=== PATIENT | female | born 1980 | race Caucasian/White ===

== ENCOUNTER 2019-04-01 16:58 | Emergency (ER) | payer SELFPAY ==
[~2019-04-01] VITALS: Ht 162.6 cm; Wt 58.1 kg
[2019-04-01 17:16] VITALS: BP 113/79; Ht 162.6 cm; Wt 58.1 kg
== END 2019-04-01 18:58 | disposition left against medical advice (07) ==
LOC: ED 16:58
DX: Z53.21 Procedure and treatment not carried out due to patient leaving prior to being seen by health care provider (principal)

== ENCOUNTER 2019-04-23 19:16 | Emergency (ER) | payer MEDICAID ==
[~2019-04-23] VITALS: Ht 162.6 cm; Wt 63.5 kg
[2019-04-23 19:23] VITALS: Ht 162.6 cm; Wt 63.5 kg
[2019-04-23 20:25] LABS: BASOPHIL % 0.2 % (0-2); PLATELET COUNT 322 x10^3mcL (130-400); RED CELL DISTRIBUTION WIDTH 18.3 % (11.5-14.5)
[2019-04-23 20:33] LABS: CARBON DIOXIDE 26.4 mmol/L (21-32); CHLORIDE SERUM 108 mmol/L (98-107); CREATININE SERUM 0.5 mg/dL (0.6-1.0); GFR1 > 60 mL/min; GLUCOSE SERUM 96 mg/dL (74-106); POTASSIUM SERUM 4.6 mmol/L (3.5-5.1); SODIUM SERUM 141 mmol/L (136-145)
[2019-04-23 20:38] LABS: ALBUMIN 1.7 g/dL (3.4-5.0); ALKALINE PHOSPHATASE 239 U/L (46-116); ALT/SGPT 20 U/L (14-59); AST/SGOT 32 U/L (15-37); BILIRUBIN TOTAL 0.1 mg/dL (0.20-1.00)
[2019-04-23 22:32] VITALS: BP 130/78
== END 2019-04-23 22:30 | disposition home or self-care (01) ==
LOC: ED 19:16
PROVIDERS: Emergency Medicine
DX: O90.89 Other complications of the puerperium, not elsewhere classified (principal); D64.9 Anemia, unspecified; R10.30 Lower abdominal pain, unspecified; I10 Essential (primary) hypertension; Z90.89 Acquired absence of other organs; Z88.0 Allergy status to penicillin
CPT/HCPCS: 36415; J7030

== ENCOUNTER 2019-04-25 03:30 | Emergency (ER) | payer MEDICAID ==
[~2019-04-25] VITALS: Ht 154.9 cm; Wt 54.1 kg
[2019-04-25 03:49] VITALS: Ht 154.9 cm; Wt 54.1 kg
[2019-04-25 05:16] LABS: BASOPHIL % 0.1 % (0-2); PLATELET COUNT 345 x10^3mcL (130-400)
[2019-04-25 05:19] LABS: CALCIUM 8.2 mg/dL (8.5-10.1); CHLORIDE SERUM 103 mmol/L (98-107); CREATININE SERUM 0.5 mg/dL (0.6-1.0); GFR1 > 60 mL/min; GLUCOSE SERUM 103 mg/dL (74-106); POTASSIUM SERUM 4.2 mmol/L (3.5-5.1); SODIUM SERUM 138 mmol/L (136-145)
[2019-04-25 05:24] LABS: ALKALINE PHOSPHATASE 257 U/L (46-116); ALT/SGPT 63 U/L (14-59); AST/SGOT 77 U/L (15-37); BILIRUBIN TOTAL 0.2 mg/dL (0.20-1.00)
[2019-04-25 05:25] LABS: RED CELL DISTRIBUTION WIDTH 18.6 % (11.5-14.5)
[2019-04-25 05:26] LABS: ALBUMIN 1.9 g/dL (3.4-5.0); TOTAL PROTEIN, SERUM 6.1 g/dL (6.4-8.2)
[2019-04-25 07:11] VITALS: BP 132/89
== END 2019-04-25 07:11 | disposition home or self-care (01) ==
LOC: ED 03:30
PROVIDERS: Emergency Medicine
DX: R51 Headache (principal); I10 Essential (primary) hypertension; Z88.0 Allergy status to penicillin
CPT/HCPCS: 36415

== ENCOUNTER 2019-05-02 17:25 | Emergency (ER) | payer MEDICAID ==
[~2019-05-02] VITALS: Ht 162.6 cm; Wt 48.5 kg
[2019-05-02 17:40] VITALS: BP 98/71; Ht 162.6 cm; Wt 48.5 kg
[2019-05-02 18:22] LABS: BASOPHIL % 0.8 % (0-2)
[2019-05-02 18:23] LABS: PLATELET COUNT 527 x10^3mcL (130-400)
[2019-05-02 18:36] LABS: CALCIUM 8.6 mg/dL (8.5-10.1); CARBON DIOXIDE 30.2 mmol/L (21-32); CHLORIDE SERUM 106 mmol/L (98-107); CREATININE SERUM 0.6 mg/dL (0.6-1.0); GFR1 > 60 mL/min; GLUCOSE SERUM 88 mg/dL (74-106); POTASSIUM SERUM 4.1 mmol/L (3.5-5.1); SODIUM SERUM 145 mmol/L (136-145)
[2019-05-02 18:45] LABS: ALKALINE PHOSPHATASE 190 U/L (46-116); ALT/SGPT 32 U/L (14-59); AST/SGOT 23 U/L (15-37); BILIRUBIN TOTAL 0.2 mg/dL (0.20-1.00); TOTAL PROTEIN, SERUM 7.4 g/dL (6.4-8.2)
[2019-05-02 18:47] LABS: ALBUMIN 2.9 g/dL (3.4-5.0)
== END 2019-05-02 19:19 | disposition left against medical advice (07) ==
LOC: ED 17:25
PROVIDERS: Emergency Medicine
DX: O72.1 Other immediate postpartum hemorrhage (principal)
CPT/HCPCS: 36415